=== PATIENT | male | born 1935 | race Caucasian/White ===

== ENCOUNTER 2016-11-23 19:49 | Emergency (ER) | payer OTHER ==
[~2016-11-23] VITALS: Ht 170.2 cm; Wt 73.3 kg
[2016-11-23 19:53] VITALS: BP 136/73; PULSE 76; TEMP 36.9; O2SAT 96; Ht 170.2 cm; Wt 73.3 kg
[2016-11-23] MEDS ORDERED: SODIUM CHLORIDE 0.9% 1000ML 1,000 ML IV STA (20:44)
[2016-11-23] MEDS ORDERED: ONDANSETRON INJ 2 MG/ML 2 ML VIAL IV STA (20:44)
--- NOTE | 2016-11-23 21:14 | DIAGNOSTIC IMAGING REPORT ---
SINGLE VIEW CHEST CLINICAL HISTORY: Atypical chest pain. FINDINGS: An AP, portable, upright chest radiograph is obtained. No prior studies are available for comparison at the time of dictation. The examination is degraded by portable technique and patient rotation. The cardiomediastinal silhouette is unremarkable. There is atherosclerotic calcification of the thoracic aorta. A calcified granuloma projects over the right apex. No airspace consolidation, large pleural effusion, or pneumothorax is seen. The skeletal structures are osteopenic. The bony thorax is grossly intact. IMPRESSION: No acute cardiopulmonary abnormality. Electronically signed by: Kai Mendoza M.D. 11/23/2016 9:13 PM Dictated Date/Time: 11/23/2016 9:12 PM
[2016-11-23] MEDS ORDERED: GI COCKTAIL PO STA (21:35)
[2016-11-23] MEDS ORDERED: ALUMINUM/MAGNESIUM SUSP 30 ML UDC ONE (21:43)
[2016-11-23] MEDS ORDERED: LIDOCAINE HCL 2% VISC SOLN 20 ML UDC ONE (21:43)
[2016-11-23] MEDS ORDERED: [UNRECOGNIZED DRUG - OTHER] PO (21:44)
[2016-11-23] MEDS ORDERED: FAMOTIDINE 20 MG TAB PO ONE (21:45)
[2016-11-23] MEDS ORDERED: ONDANSETRON 4MG OD TAB PO ONE (21:45)
[2016-11-23] MEDS ORDERED: FAMO20TA9 PO (22:07)
--- NOTE | 2016-11-23 22:07 | EMERGENCY ROOM VISIT NOTE ---
History Report prepared by Neris: Ely Hairston Under the Supervision of: Dr. Manny Rhdoes M.D. First contact with patient: 20:27 Chief Complaint: VOMITING Stated Complaint: STOMACH INFECTION Nursing Triage Summary: Patient came from [place] yesterday. Patient vomitted 3 times in flight. Continues with nausea and vomitting, and had trouble with acid Took Cyra-D and Rifaimin 400 g last two days. Now also with chest pain. History of Present Illness The patient is a 81 year old male who presents to the Emergency Room with complaints of persistent chest pain starting yesterday. He describes the pain as burning. The [place] the [place] from [facility] yesterday. The patient had nausea, 3 episodes of vomiting, belching, and increased gas in route. He had been feeling uncomfortable with acid reflux before getting on the plane. He has not vomited after arriving in the [place]. He currently does not have any nausea. He presents to the ED for the burning in his throat and chest. He states he has no appetite because of the burning and the belching. He reports abdominal bloating. He denies any SOB. He denies any history of medical problems. He denies any history of abdominal surgeries. He does not smoke. He admits to occasional alcohol use. Source of History: patient, family Onset: yesterday Position: chest Quality: other (burning) Timing: other (persistent) Associated Symptoms: + sorethroat, + nausea (resolved), + vomiting (resolved ), No SOB Note: Pt reports abdominal bloating, belching, decreased appetite. Review of Systems See HPI for pertinent positives and negatives. A total of ten systems were reviewed and were otherwise negative. Past Medical & Surgical Medical Problems: (1) No significant medical problems Family History Noncontributory secondary to age. Social History Smoking Status: Never Smoker Marital Status: Current/Historical Medications Scheduled Famotidine (Pepcid), 20 MG PO BID [Contiflo-D], 1 TAB PO DAILY Allergies Coded Allergies: No Known Allergies (Unverified , 11/23/16) Physical Exam Vital Signs Date Time Temp Pulse Resp B/P (MAP) Pulse Ox O2 Delivery O2 Flow Rate FiO2 11/23/16 19:53 36.9 76 16 136/73 96 Room Air Physical Exam GENERAL: Awake, alert, well-appearing, in no distress HENT: Normocephalic, atraumatic. Dry mucous membranes. EYES: Normal conjunctiva. Sclera non-icteric. NECK: Supple. No nuchal rigidity. FROM. No JVD. RESPIRATORY: Clear to auscultation. CARDIAC: Regular rate, normal rhythm. Extremities warm and well perfused. Pulses equal. ABDOMEN: Soft, distended. No tenderness to palpation. No rebound or guarding. No masses. RECTAL: Deferred. MUSCULOSKELETAL: Chest examination reveals no tenderness. The back is symmetrical on inspection without obvious abnormality. There is no CVA tenderness to palpation. No joint edema. LOWER EXTREMITIES: Calves are equal size bilaterally and non-tender. No edema. No discoloration. NEURO: Normal sensorium. No sensory or motor deficits noted. SKIN: No rash or jaundice noted. Medical Decision & Procedures ER Provider Diagnostic Interpretation: Radiology results as stated below per my review and radiologist interpretation: SINGLE VIEW CHEST CLINICAL HISTORY: Atypical chest pain. FINDINGS: An AP, portable, upright chest radiograph is obtained. No prior studies are available for comparison at the time of dictation. The examination is degraded by portable technique and patient rotation. The cardiomediastinal silhouette is unremarkable. There is atherosclerotic calcification of the thoracic aorta. A calcified granuloma projects over the right apex. No airspace consolidation, large pleural effusion, or pneumothorax is seen. The skeletal structures are osteopenic. The bony thorax is grossly intact. IMPRESSION: No acute cardiopulmonary abnormality. Electronically signed by: Kai Mendoza M.D. 11/23/2016 9:13 PM Dictated Date/Time: 11/23/2016 9:12 PM Medications Administered Medications (Trade) Dose Ordered Sig/Alfie Route Start Time Stop Time Status Last Admin Dose Admin Famotidine (Pepcid Tab) 20 mg NOW ONCE PO 11/23/16 21:45 11/23/16 21:46 DC 11/23/16 21:47 20 MG Al Hydroxide/Mg Hydroxide (Maalox Susp) 30 ml STK-MED ONCE .ROUTE 11/23/16 21:43 11/23/16 21:44 DC 11/23/16 21:46 30 ML Lidocaine HCl (Viscous Lidocaine 2% Soln) 20 ml STK-MED ONCE .ROUTE 11/23/16 21:43 11/23/16 21:44 DC 11/23/16 21:47 20 ML ECG Indication: chest pain Rate (beats per minute): 77 Rhythm: sinus rhythm Findings: no acute ischemic change, other (normal axis) ED Course 2036: The student evaluated the patient at this time. We discussed the findings , differential, and plan. 2113: The patient was evaluated in room A4B. A complete history and physical exam was performed. 2142: Lidocaine HCl 20 ml PO, Maalox Susp 30 ml PO. 2144: Pepcid Tab 20 mg PO. 2209: I reevaluated the patient. He was feeling better. I discussed with him the risks of leaving AMA including worsening condition, disability, and . He verbalized understanding. He will be leaving AMA. Medical Decision I reviewed the patient's past medical history, medications, and the nursing notes as described above. Differential diagnosis: gastritis, gastroenteritis, biliary etiology, obstruction, appendicitis, pneumonia, bronchitis, ACS. The patient is a 81 y/o gentleman visiting his grandson from [place] who denies any pmhx presenting with n/v, throat burning, abdominal bloating per HPI. On arrival the patient is in NAD, AFVSS. Dry MM. Abd mildly distended/bloated but soft, nttp. EKG unremarkable. Initial w/u ordered given patient's age and unclear medical hx to evaluate for cardiac, pulmonary, GI causes however patient declining w/u since he has been feeling better and only wants "medicine to help with his bloating". I explained to the patient my recommendation for full evaluation the risks of going against medical advice including worse condition, disability, and . Patient understood and preferred only oral medication. Given oral pepcid and GI cocktail with improvement of sx. Patient already taking PPI. Findings and plan for follow-up d/w patient. Patient agreeable and d/c'd per discharge instructions. Medication Reconcilliation Current Medication List: was personally reviewed by me Blood Pressure Screening Patient's blood pressure: Normal blood pressure Blood pressure disposition: Did not require urgent referral Impression Primary Impression: Vomiting Additional Impression: Gastroenteritis Scribe Attestation The scribe's documentation has been prepared under my direction and personally reviewed by me in its entirety. I confirm that the note above accurately reflects all work, treatment, procedures, and medical decision making performed by me. Departure Information Dispostion Against Medical Advice Prescriptions Famotidine (PEPCID) 20 Mg Tab 20 MG PO BID for 14 Days, #28 TAB Prov: Manny Rhodes M.D. 11/23/16 Patient Instructions ED [place] Form- 1, ED Food Poison Or Gastroenteritis, ED Nausea Vomiting, My [facility] Additional Instructions Please follow up with your primary care physician in the next 1-3 days for re- evaluation. You likely have a viral gastroenteritis. Otherwise, your exam and EKG did not show signs of an emergent condition at this time however we recommended that you have lab tests to further evaluate your symptoms which you declined. Please note by leaving AGAINST MEDICAL ADVICE you risk a worse condition, disability and . We are open 24 hours a day and 7 days a week if you change your mind or your symptoms return or become worse. Take Pepcid as directed. Return to the emergency department for worsening symptoms as described in the accompanying instructions. Problem Qualifiers
== END 2016-11-23 22:18 | disposition home or self-care (01) ==
LOC: C.EDB 19:52 → C.EDA 22:18
DX: K52.9 Noninfective gastroenteritis and colitis, unspecified (principal)

== ENCOUNTER 2016-11-25 10:47 | Emergency (ER) | payer OTHER ==
[~2016-11-25] VITALS: Ht 170.2 cm; Wt 72.8 kg
[~2016-11-25 10:47] MED LIST: FAMO20TA9 PO; [UNRECOGNIZED DRUG - OTHER] PO
[2016-11-25 10:51] VITALS: TEMP 37.1; Ht 170.2 cm; Wt 72.8 kg
[2016-11-25] MEDS ORDERED: SODIUM CHLORIDE 0.9% 1000ML 250 ML IV STA (11:57)
[2016-11-25] MEDS ORDERED: SODIUM CHLORIDE 0.9% 1000ML 1,000 ML IV STA (11:57)
[2016-11-25] MEDS ORDERED: ALBUTEROL 0.083% NEBU SOLN 3 ML VIAL INH STA (11:59)
--- NOTE | 2016-11-25 12:16 | DIAGNOSTIC IMAGING REPORT ---
SINGLE VIEW CHEST CLINICAL HISTORY: Cough and wheezing. FINDINGS: An AP, portable, upright chest radiograph is compared to study dated 11/23/2016. The examination is degraded by portable technique and patient rotation. The cardiomediastinal silhouette is unremarkable. There is mild atherosclerotic calcification of the thoracic aorta. A calcified granuloma projects over the right apex. There is no airspace consolidation or large pleural effusion. No pneumothorax is seen. The bony thorax is grossly intact. IMPRESSION: No acute cardiopulmonary abnormality. Electronically signed by: Kai Mendoza M.D. 11/25/2016 12:14 PM Dictated Date/Time: 11/25/2016 12:14 PM
[2016-11-25 12:27] LABS: COMPLETE YES; HEMATOCRIT 35.6 % (42-52); IG% 0.2 %; LYMPH % 10.1 %; LYMPH ABS # 0.49 K/uL (1.2-3.4); MEAN CELL VOLUME 85.4 fL (80-100); MEAN CORPUSCULAR HEMOGLOBIN 28.8 pg (25-34); MEAN CORPUSCULAR HGB CONC 33.7 g/dl (32-36); MEAN PLATELET VOLUME 11.1 fL (7.4-10.4); MONO % 18.1 %; NEUT % 71.6 %; PLATELET COUNT 143 K/uL (130-400); RED BLOOD COUNT 4.17 M/uL (4.7-6.1); WHITE BLOOD COUNT 4.87 K/uL (4.8-10.8)
[2016-11-25 12:46] LABS: CALCIUM 8.8 mg/dl (8.5-10.1); CREATININE 1.1 mg/dl (0.60-1.40); POTASSIUM 3.6 mmol/L (3.5-5.1)
[2016-11-25] MEDS ORDERED: OPTIRAY 320 IV PRN (13:30)
--- NOTE | 2016-11-25 14:18 | DIAGNOSTIC IMAGING REPORT ---
CT ANGIOGRAM OF THE CHEST CLINICAL HISTORY: Cough and dyspnea. COMPARISON STUDY: Chest x-ray dated 11/25/2016. TECHNIQUE: Following the IV administration of 92 cc of Optiray 320, CT angiogram of the chest was performed from the upper abdomen to the thoracic inlet utilizing the pulmonary embolus protocol. Images are reviewed in the axial, sagittal, and coronal planes. 3-D MIPS images are created and assessed. IV contrast was administered without complication. A dose lowering technique was utilized adhering to the principles of ALARA. CT DOSE: 266.41 mGy.cm FINDINGS: Thyroid: Imaged portions of the thyroid gland are normal in size and attenuation. Thoracic aorta: There is mild atherosclerotic calcification of the thoracic aorta, which is normal in caliber and demonstrates standard 3-vessel arch anatomy. No dissection is seen. Pulmonary vasculature: The pulmonary trunk is normal in caliber. There are no filling defects identified in main, lobar, or proximal segmental pulmonary branches to suggest pulmonary embolus. Evaluation of the peripheral branches is significant compromise by motion artifact. Heart: The heart is normal in size and there is trace pericardial fluid. Lungs and pleural spaces: Evaluation of the lung parenchyma is significantly degraded by motion artifact. A large calcified granuloma is seen at the right apex. Additional small calcified granulomas are suggested. No lobar consolidation is identified typical for pneumonia. There are trace pleural effusions with bibasilar atelectasis. Peribronchial thickening is seen in the lower lobes and there is intraluminal fluid/secretions within the dependent lower lobe airways. The trachea is clear. Mediastinum: There is no mediastinal lymphadenopathy. Johanna: Clear. Axillae: There is no axillary lymphadenopathy. Upper abdomen: Scattered hepatic cysts are identified. The largest is in left lobe and measures 2.3 cm. Additional subcentimeter hepatic densities also likely recommend cysts but are too small for definitive characterization. Calcified gallstones are noted. There is a tiny hiatal hernia. Skeletal structures: The skeletal structures are osteopenic. No lytic or blastic bony lesions are seen. IMPRESSION: 1. Significantly motion compromised examination. 2. There is no evidence of pulmonary embolus in the main, lobar, or proximal segmental pulmonary arteries. 3. There are trace pleural effusions. No lobar consolidation is seen typical for pneumonia. 4. Peribronchial thickening with intraluminal secretions/debris is present involving the dependent lower lobe airways. This is nonspecific and may be related to aspiration. Clinical correlation will be essential. Electronically signed by: Kai Mendoza M.D. 11/25/2016 2:17 PM Dictated Date/Time: 11/25/2016 2:05 PM
[2016-11-25] MEDS ORDERED: OSELTAMIVIR PHOSPHATE 75 MG CAP PO STA (14:46)
[2016-11-25] MEDS ORDERED: AMOX875T PO (14:48)
[2016-11-25] MEDS ORDERED: OSEL75CA12 PO (14:48)
[2016-11-25 14:55] VITALS: BP 133/63; PULSE 75; O2SAT 95
[2016-11-25] MEDS ORDERED: AMOXICILLIN/CLAVULANATE TAB 875 MG TAB PO ONE (15:00)
--- NOTE | 2016-11-25 15:10 | EMERGENCY ROOM VISIT NOTE ---
History Report prepared by Neris: Pola Ledezma Under the Supervision of: Dr. Avery Douglass M.D. First contact with patient: 11:48 Chief Complaint: ILLNESS Stated Complaint: GASTROENTERITIS History of Present Illness The patient is a 81 year old male who presents to the Emergency Room with complaints of a persistent generalized illness beginning three days ago. His symptoms include "wheezing" cough, fatigue, and abdominal distension. Per family , the patient flew in to the [place] from [place] three days ago. She states that the patient vomited on the plane, and once afterwards. The patient denies any SOB, chest pain, diarrhea, sore throat, or fever. He has no history of blood clots. He did not have a flu shot this year. Source of History: patient, family Onset: Three days ago Position: other (generalized) Quality: other (illness) Timing: other (persistent) Associated Symptoms: + cough ("wheezing"), + vomiting, + fatigue, No fevers , No sorethroat, No SOB, No diarrhea Note: Symptoms include: abdominal distension. Review of Systems See HPI for pertinent positives & negatives. A total of 10 systems reviewed and were otherwise negative. Past Medical & Surgical Medical Problems: (1) No significant medical problems Old medical records were reviewed. Nurse's notes were reviewed and I agree with. Family History No pertinent family history stated. Social History Smoking Status: Never Smoker Marital Status: Current/Historical Medications Scheduled Amoxicillin & Pot Clavulanate (Augmentin 875-125 mg), 875 MG PO BID Famotidine (Pepcid), 20 MG PO BID Oseltamivir (Tamiflu), 75 MG PO BID [Contiflo-D], 1 TAB PO DAILY Allergies Coded Allergies: No Known Allergies (Unverified , 11/23/16) Physical Exam Vital Signs Date Time Temp Pulse Resp B/P (MAP) Pulse Ox O2 Delivery O2 Flow Rate FiO2 11/25/16 14:55 75 20 133/63 95 Room Air 11/25/16 13:24 81 20 140/63 92 Room Air 11/25/16 12:27 75 22 142/70 95 Room Air 11/25/16 12:18 77 11/25/16 10:51 37.1 87 18 154/68 95 Room Air Physical Exam General: Minimally-ill appearing older male in no acute distress. Occasional upper respiratory noise. HEENT: Normal cephalic atraumatic. Pupils are equal round and reactive to light. Extraocular movements are intact. Oropharynx is pink with moist mucous membranes. No swelling of the mouth lips or tongue. Neck: Supple with a midline trachea. No meningeal signs or stiffness, no JVD or bruits. No Stridor. Chest: Clear to auscultation bilaterally. No wheezes or rhonchi. No increased work of breathing. Heart: regular rate and rhythm. Abdomen: Soft nontender, nondistended without rebound guarding or rigidity. Extremities: No cyanosis clubbing or edema. No calf tenderness or assymetry Spine/Back. Non tender to palpation. No CVA tenderness Skin: Good turgor without rashes. Neurologic exam: Cranial nerves two through 12 are intact. Motor and sensation are intact and symmetrical throughout. Medical Decision & Procedures ER Provider Diagnostic Interpretation: Radiology results as stated below per my review and radiologist interpretation: SINGLE VIEW CHEST FINDINGS: An AP, portable, upright chest radiograph is compared to study dated 11/23/2016. The examination is degraded by portable technique and patient rotation. The cardiomediastinal silhouette is unremarkable. There is mild atherosclerotic calcification of the thoracic aorta. A calcified granuloma projects over the right apex. There is no airspace consolidation or large pleural effusion. No pneumothorax is seen. The bony thorax is grossly intact. IMPRESSION: No acute cardiopulmonary abnormality. Electronically signed by: Kai Mendoza M.D. 11/25/2016 12:[address] ANGIOGRAM OF THE CHEST FINDINGS: Thyroid: Imaged portions of the thyroid gland are normal in size and attenuation. Thoracic aorta: There is mild atherosclerotic calcification of the thoracic aorta, which is normal in caliber and demonstrates standard 3-vessel arch anatomy. No dissection is seen. Pulmonary vasculature: The pulmonary trunk is normal in caliber. There are no filling defects identified in main, lobar, or proximal segmental pulmonary branches to suggest pulmonary embolus. Evaluation of the peripheral branches is significant compromise by motion artifact. Heart: The heart is normal in size and there is trace pericardial fluid. Lungs and pleural spaces: Evaluation of the lung parenchyma is significantly degraded by motion artifact. A large calcified granuloma is seen at the right apex. Additional small calcified granulomas are suggested. No lobar consolidation is identified typical for pneumonia. There are trace pleural effusions with bibasilar atelectasis. Peribronchial thickening is seen in the lower lobes and there is intraluminal fluid/secretions within the dependent lower lobe airways. The trachea is clear. Mediastinum: There is no mediastinal lymphadenopathy. Johanna: Clear. Axillae: There is no axillary lymphadenopathy. Upper abdomen: Scattered hepatic cysts are identified. The largest is in left lobe and measures 2.3 cm. Additional subcentimeter hepatic densities also likely recommend cysts but are too small for definitive characterization. Calcified gallstones are noted. There is a tiny hiatal hernia. Skeletal structures: The skeletal structures are osteopenic. No lytic or blastic bony lesions are seen. IMPRESSION: 1. Significantly motion compromised examination. 2. There is no evidence of pulmonary embolus in the main, lobar, or proximal segmental pulmonary arteries. 3. There are trace pleural effusions. No lobar consolidation is seen typical for pneumonia. 4. Peribronchial thickening with intraluminal secretions/debris is present involving the dependent lower lobe airways. This is nonspecific and may be related to aspiration. Clinical correlation will be essential. Electronically signed by: Kai Mendoza M.D. 11/25/2016 2:17 PM Laboratory Results 11/25/16 12:05 Red Blood Count 4.17, Mean Corpuscular Volume 85.4, Mean Corpuscular Hemoglobin 28.8, Mean Corpuscular Hemoglobin Concent 33.7, Mean Platelet Volume 11.1, Neutrophils (%) (Auto) 71.6, Lymphocytes (%) (Auto) 10.1, Monocytes (%) (Auto) 18.1, Eosinophils (%) (Auto) 0.0, Basophils (%) (Auto) 0.0, Neutrophils # (Auto ) 3.49, Lymphocytes # (Auto) 0.49, Monocytes # (Auto) 0.88, Eosinophils # (Auto ) 0.00, Basophils # (Auto) 0.00 11/25/16 12:05 Test 11/25/16 12:05 11/25/16 12:21 11/25/16 12:55 White Blood Count 4.87 K/uL (4.8-10.8) Red Blood Count 4.17 M/uL (4.7-6.1) Hemoglobin 12.0 g/dL (14.0-18.0) Hematocrit 35.6 % (42-52) Mean Corpuscular Volume 85.4 fL (80-100) Mean Corpuscular Hemoglobin 28.8 pg (25-34) Mean Corpuscular Hemoglobin Concent 33.7 g/dl (32-36) Platelet Count 143 K/uL (130-400) Mean Platelet Volume 11.1 fL (7.4-10.4) Neutrophils (%) (Auto) 71.6 % Lymphocytes (%) (Auto) 10.1 % Monocytes (%) (Auto) 18.1 % Eosinophils (%) (Auto) 0.0 % Basophils (%) (Auto) 0.0 % Neutrophils # (Auto) 3.49 K/uL (1.4-6.5) Lymphocytes # (Auto) 0.49 K/uL (1.2-3.4) Monocytes # (Auto) 0.88 K/uL (0.11-0.59) Eosinophils # (Auto) 0.00 K/uL (0-0.5) Basophils # (Auto) 0.00 K/uL (0-0.2) RDW Standard Deviation 42.5 fL (36.4-46.3) RDW Coefficient of Variation 13.7 % (11.5-14.5) Immature Granulocyte % (Auto) 0.2 % Immature Granulocyte # (Auto) 0.01 K/uL (0.00-0.02) Anion Gap 4.0 mmol/L (3-11) Est Creatinine Clear Calc Drug Dose 50.9 ml/min Estimated GFR () 73.6 Estimated GFR (Non- 63.5 BUN/Creatinine Ratio 7.0 (10-20) Calcium Level 8.8 mg/dl (8.5-10.1) Total Bilirubin 0.5 mg/dl (0.2-1) Direct Bilirubin 0.2 mg/dl (0-0.2) Aspartate Amino Transf (AST/SGOT) 34 U/L (15-37) Alanine Aminotransferase (ALT/SGPT) 45 U/L (12-78) Alkaline Phosphatase 61 U/L (45-117) Total Protein 7.3 gm/dl (6.4-8.2) Albumin 3.3 gm/dl (3.4-5.0) Lipase 582 U/L (73-393) Bedside D-Dimer > 450 ng/mlFEU (0-450) Bedside Troponin I 0.030 ng/ml (0-0.045) Influenza Type A Antigen POS for Influ A (NEG) Influenza Type B Antigen Neg for Influ B (NEG) Laboratory studies as stated above per my review. Medications Administered Medications (Trade) Dose Ordered Sig/Alfie Route Start Time Stop Time Status Last Admin Dose Admin Sodium Chloride 250 ml @ 999 mls/hr Q16M STAT IV 11/25/16 11:57 11/25/16 12:12 DC 11/25/16 12:14 999 MLS/HR Sodium Chloride 1,000 ml @ 100 mls/hr Q10H STAT IV 11/25/16 11:57 11/25/16 16:00 DC 11/25/16 12:13 100 MLS/HR Albuterol Sulfate (Ventolin 0.083% 2.5MG/3ML Neb) 2.5 mg NOW STAT INH 11/25/16 11:59 11/25/16 12:00 DC 11/25/16 12:20 2.5 MG Amoxicillin/ Clavulanate Potassium (Augmentin Tab) 875 mg ONE ONCE PO 11/25/16 15:00 11/25/16 15:01 DC 11/25/16 15:01 875 MG Oseltamivir Phosphate (Tamiflu Cap) 75 mg NOW STAT PO 11/25/16 14:46 11/25/16 14:47 DC 11/25/16 15:01 75 MG ECG Indication: other (cough) Rate (beats per minute): 83 Rhythm: normal sinus Findings: no acute ischemic change, no ectopy Comparison ECG Date: Nov 23, 2016 Change: no significant change ED Course 1150: Past medical records reviewed. The patient was evaluated in room C5, and a complete history and physical examination were performed. 1157: Ordered Sodium Chloride 1000 ml @ 100 mls/hr IV, Sodium Chloride 250 ml @ 999 mls/hr IV. 1159: Ordered Ventolin 0.083% 2.5 mg/3 mL Neb 2.5 mg IM. 1322: I reassessed the patient. He appears comfortable. 1446: Ordered Tamiflu Cap 75 mg PO. 1450: Upon reevaluation, the patient is resting comfortably. I discussed the results and treatment plan with him. He verbalized agreement of the treatment plan. The patient was discharged home. 1500: Ordered Augmentin Tab 875 mg PO. Medical Decision Differentials include, but are not limited to; bronchitis, influenza, pneumonia , cardiac disease, CHF, and PE. This patient comes in as described above. He presents with a cough and URI type symptoms. He has some wheezing occasionally which seems to clear with coughing. He has no definite stridor. It it seems upper and he has no wheezing on his lungs in the lower [place]. IV access established. She has stable vital signs influenza was positive . Chest x-ray was negative. Rest of his blood work was unremarkable. I with exception of an elevated d-dimer. Given his recent air travel from [place], I did a chest CT and there is no evidence of PE. There is no focal infiltrate. There is some debris in the bronchiole tubes which is nonspecific but could be related to aspiration. Given the fact that he was vomiting until yesterday, there is also possibly could've aspirated I will cover him with Augmentin 875 mg twice a day I also put him on Tamiflu for influenza. He can use of [id number] Tylenol and/ or ibuprofen but do not exceed the [id number] recommended dosages rest and drink plenty fluids. Return if : worsening of symptoms, fever or chills, any new problems or concerns. They're happy with plan and he was discharged to home. Medication Reconcilliation Current Medication List: was personally reviewed by me Blood Pressure Screening Patient's blood pressure: Elevated blood pressure Blood pressure disposition: Elevated BP felt to be situational Impression Primary Impression: Influenza Additional Impression: Bronchitis Scribe Attestation The scribe's documentation has been prepared under my direction and personally reviewed by me in its entirety. I confirm that the note above accurately reflects all work, treatment, procedures, and medical decision making performed by me. Departure Information Dispostion Home / Self-Care Prescriptions Oseltamivir (Tamiflu) 75 Mg Cap 75 MG PO BID, #10 CAP Prov: Avery Douglass M.D. 11/25/16 Amoxicillin & Pot Clavulanate (Augmentin 875-125 mg) 1 Tab Tab 875 MG PO BID for 10 Days, #20 TAB Prov: Avery Douglass M.D. 11/25/16 Referrals No Doctor, Assigned (PCP) Forms HOME CARE DOCUMENTATION FORM, IMPORTANT VISIT INFORMATION, WORK / SCHOOL INSTRUCTIONS Patient Instructions My [facility] Additional Instructions Rest. Drink plenty of fluids. Use Tamiflu 75 mg twice a day for 5 [id number] Also use Augmentin 875 mg twice a day for 10 days-antibiotic Return if: Worsening of symptoms, not tolerating fluids, shortness breath, any new problems or concerns. Problem Qualifiers
== END 2016-11-25 15:09 | disposition home or self-care (01) ==
LOC: C.EDB 10:50 → C.EDC 15:09
DX: J11.1 Influenza due to unidentified influenza virus with other respiratory manifestations (principal); J40 Bronchitis, not specified as acute or chronic